=== PATIENT | male | born 1960 | race Caucasian/White ===

== ENCOUNTER 2016-12-18 18:23 | Emergency (ER) | payer OTHER ==
[~2016-12-18] VITALS: Ht 170.2 cm; Wt 77.0 kg
[~2016-12-18 18:23] MED LIST: ATORVASTATIN CA40 MG PO; CEFTIN500 MG PO; CIPRO500 MG PO; ENDOCET 5-3251 EACH PO; LISINOPRIL2.5 MG PO; LOW DOSE ASPIRI81 M1 PO; METFORMIN HCL500 MG PO; METFORMIN HCL850 MG PO; NORCO 5/3251 TABLET PO
[2016-12-18 18:44] LABS: HEMATOCRIT 43.5 % (38.0-50.0); MCHC 35.4 G/DL (30.0-36.0); MCV 81.9 FL (86-99); RBC DIS.WIDTH-CV 13.4 % (11.8-14.6); RBC DIS.WIDTH-SD 39.5 % (39-53); RED BLOOD COUNT 5.31 M/uL (4.00-5.50); WHITE BLOOD COUNT 7.3 K/uL (4.1-10.2)
[2016-12-18 18:51] LABS: CHLORIDE 104 mEq/L (99-109)
[2016-12-18 18:52] LABS: POTASSIUM 4.7 mEq/L (3.7-5.4); SODIUM 138 mEq/L (136-147)
[2016-12-18 18:54] LABS: GLUCOSE 166 mg/dL (70-99)
[2016-12-18 18:55] LABS: ANION GAP 12 MEQ/L (2-14)
[2016-12-18 18:56] LABS: TOTAL BILIRUBIN 0.9 mg/dL (0.0-1.0)
[2016-12-18 18:57] LABS: ALKALINE PHOSPHATASE 85 IU/L (3-129); GFR ESTIMATE (CALCULATED) 30 mL/min/
[2016-12-18 18:59] LABS: PLATELET COUNT 277 K/uL (156-360); UREA NITROGEN (BUN) 28 mg/dL (9-23)
[2016-12-18 21:54] LABS: LIPASE 152 U/L (1.0-51.0)
[2016-12-18 23:49] LABS: ADD MIUA? NO; BILIRUBIN NEGATIVE; BLOOD NEGATIVE; COLOR YELLOW ((YELLOW)); GLUCOSE (STRIP) NEGATIVE; KETONES NEGATIVE; LEUKOCYTES NEGATIVE; NITRITE NEGATIVE; PH, URINE 5.5 (5-8); PROTEIN (STRIP) NEGATIVE; SPECIFIC GRAVITY 1.025 (1.000-1.030); UCUL ADDED? NO; UROBILINOGEN 0.2 MG/DL (0.2-1.0)
[2016-12-19] MEDS ORDERED: COLACE100 MG PO (04:25)
[2016-12-19] MEDS ORDERED: HYDROMORPHONE HC2 MG PO (04:26)
[2016-12-19 09:54] VITALS: BP 132/74
== END 2016-12-19 09:56 | disposition short-term general hospital (02) ==
LOC: EME 18:23
DX: K68.11 Postprocedural retroperitoneal abscess (principal); Z90.5 Acquired absence of kidney; C64.2 Malignant neoplasm of left kidney, except renal pelvis; I10 Essential (primary) hypertension; E11.9 Type 2 diabetes mellitus without complications; Z79.82 Long term (current) use of aspirin
CPT/HCPCS: 74176; 80053; 81003; 83690; 85027; 99281; 99285; J2270; J2405; J2543; J7030

== ENCOUNTER → 2017-01-28 | Outpatient (CLI) | payer OTHER ==
[~2017-01-28] MED LIST changes: +COLACE100 MG PO; +GLUCOPHAGE850 MG PO; +HYDROMORPHONE HC2 MG PO; +LIPITOR40 MG PO; +PERCOCET 5/31 TABLET PO; +PROTONIX40 MG PO; +ZESTRIL2.5 MG PO
== END | disposition home or self-care (01) ==
LOC: CDC 08:58
DX: Z01.810 Encounter for preprocedural cardiovascular examination (principal); K80.10 Calculus of gallbladder with chronic cholecystitis without obstruction
CPT/HCPCS: 93000

== ENCOUNTER 2017-02-03 06:33 | Day surgery (SDC) | payer OTHER ==
[~2017-02-03] VITALS: Ht 170.2 cm; Wt 73.0 kg
[~2017-02-03 06:33] MED LIST changes: -PERCOCET 5/31 TABLET PO
[2017-02-03 07:28] LABS: POINT-OF-CARE METER ID UU14174212
[2017-02-03 07:44] VITALS: BP 138/83
[2017-02-03 09:36] LABS: POINT-OF-CARE METER ID UU13113675
[2017-02-03 11:15] VITALS: BP 158/85
[2017-02-03] MEDS ORDERED: PERCOCET 5/31 TABLET PO (11:42)
[2017-02-03 12:00] VITALS: BP 138/79
[2017-02-03 14:15] VITALS: BP 155/96
[2017-02-03 16:10] VITALS: BP 148/84
[2017-02-03 17:02] VITALS: BP 156/77
[2017-02-03 17:08] LABS: POINT-OF-CARE METER ID UU14174212
== END 2017-02-03 17:15 | disposition home or self-care (01) ==
LOC: SDC → EDSTATUS 10:31 → 2SOUTH 10:31 → SDC 10:32
PROVIDERS: Surgery
PROC: 0FT44ZZ Resection of Gallbladder, Percutaneous Endoscopic Approach (ICD-10-PCS; principal; 2017-02-03)
DX: K80.10 Calculus of gallbladder with chronic cholecystitis without obstruction (principal); E11.9 Type 2 diabetes mellitus without complications; E78.5 Hyperlipidemia, unspecified; E66.3 Overweight; Z68.27 Body mass index [BMI] 27.0-27.9, adult; Z79.84 Long term (current) use of oral hypoglycemic drugs; Z79.82 Long term (current) use of aspirin; Z80.3 Family history of malignant neoplasm of breast; Z80.7 Family history of other malignant neoplasms of lymphoid, hematopoietic and related tissues; Z82.0 Family history of epilepsy and other diseases of the nervous system; Z88.1 Allergy status to other antibiotic agents
CPT/HCPCS: 82948; 88304; J0131; J0690; J1170; J2175; J2250; J2405; J2710; J2765; J3010

== ENCOUNTER 2017-10-22 15:11 | Emergency (ER) | payer OTHER ==
[~2017-10-22] VITALS: Ht 170.2 cm; Wt 86.0 kg
[~2017-10-22 15:11] MED LIST changes: +PERCOCET 5/31 TABLET PO
[2017-10-22] MEDS ORDERED: BACTRIM,SEPT1 TABLET PO (15:42)
[2017-10-22] MEDS ORDERED: CLEOCIN300 MG PO (15:42)
[2017-10-22] MEDS ORDERED: CLEOCIN150 MG PO (15:42)
[2017-10-22 17:16] VITALS: BP 125/88
== END 2017-10-22 17:24 | disposition home or self-care (01) ==
LOC: EME 15:11
PROC: 3E0234Z Introduction of Serum, Toxoid and Vaccine into Muscle, Percutaneous Approach (ICD-10-PCS; principal; 2017-10-22)
DX: S80.872A Other superficial bite, left lower leg, initial encounter (principal); W54.0XXA Bitten by dog, initial encounter; Y93.H2 Activity, gardening and landscaping; Z23 Encounter for immunization; E11.9 Type 2 diabetes mellitus without complications; Z79.84 Long term (current) use of oral hypoglycemic drugs; Z85.528 Personal history of other malignant neoplasm of kidney; Z88.1 Allergy status to other antibiotic agents
CPT/HCPCS: 99281; 99284